=== PATIENT | male | born 1980 | race African-American/Black ===

== ENCOUNTER 2020-07-25 19:51 | Emergency (ER) | payer OTHER ==
[~2020-07-25] VITALS: Ht 177.8 cm; Wt 102.9 kg
[~2020-07-25 19:51] MED LIST: LEVE500T56 PO; LOSA-73 PO; PALI156D IM; PROP60TA PO
--- NOTE | 2020-07-25 20:22 | PHYS DOC ---
Past Medical History Past Medical History: Diabetes-Type II, High Cholesterol, Hypertension, S chizophrenia Additional Past Medical Histor: paranoid schizophrenia, insomnia Past Surgical History: No Surgical History Smoking Status: Current Every Day Smoker Alcohol Use: None Drug Use: None General Adult EDM: Chief Complaint: OTHER COMPLAINTS HPI: HPI: 40-year-old male past medical history of paranoid schizophrenia, type 2 diabetes, hypertension hyperlipidemia presents to the ED with biological mother after primary care physician's office sent him here with concern for glucose above 500 after labs are drawn today at PCPs office. Patient was seen by pcp this morning for increased urinary urgency and was diagnosed with a UTI, has not filled the antibiotic prescription that was called in today. Pt asking for applejuice and applesauce in ed. Patient was seen at [facility] a few months ago and is on depakote now. Patient was admitted June 03 with concern for seizure-like activity with rhabdomyolysis. Patient takes propanolol, Invega monthly, Keppra and losartan. Pt with no active complaint. Is asking for food and water. Review of Systems: Review of Systems: Constitutional: Denies fever or chills. [] Eyes: Denies change in visual acuity. [] HENT: Denies nasal congestion or sore throat. [] Respiratory: Denies cough or shortness of breath. [] Cardiovascular: Denies chest pain or edema. [] GI: Denies abdominal pain, nausea, vomiting, bloody stools or diarrhea. [] : Denies dysuria. [] Musculoskeletal: Denies back pain or joint pain. [] Integument: Denies rash. [] Neurologic: Denies headache, focal weakness or sensory changes. [] Endocrine: Denies polyuria or polydipsia. [] Lymphatic: Denies swollen glands. [] Psychiatric: Denies depression or anxiety. [] Heart Score: C/O Chest Pain: No Risk Factors: Risk Factors: DM, Current or recent (<one month) smoker, HTN, HLP, family history of CAD, obesity. Risk Scores: Score 0 - 3: 2.5% MACE over next 6 weeks - Discharge Home Score 4 - 6: 20.3% MACE over next 6 weeks - Admit for Clinical Observation Score 7 - 10: 72.7% MACE over next 6 weeks - Early Invasive Strategies Allergies: Allergies: Allergies Coded Allergies Type Severity Reaction Last Updated Verified No Known Drug Allergies 06/03/20 No Physical Exam: PE: Constitutional: Well developed, well nourished, no acute distress, non-toxic appearance. HENT: Normocephalic, atraumatic, dry mucous membranes Eyes: EOMI, conjunctiva normal, no discharge. Neck: Normal range of motion, supple, Cardiovascular: S1/2 present, regular rhythm Lungs & Thorax: Speaking in full sentences, bilateral equal chest rise, no tachypnea or increased work of breathing Abdomen: soft, no tenderness, Skin: Warm, dry, no erythema, no rash. [] Back: No tenderness, no CVA tenderness. [] Extremities: No tenderness, no cyanosis, no lower extremity edema Neurologic: Alert and oriented X 3, normal motor function, normal sensory function, no focal deficits noted. [] Psychologic: Affect normal, judgement normal, mood normal. [] EKG: EKG: [] Radiology/Procedures: Radiology/Procedures: IMAGING REPORT Signed PATIENT: ARIK CHIN ACCOUNT: [id number] : 1980 LOCATION: ER AGE: 40 SEX: M EXAM STATUS: REG ER ORD. PHYSICIAN: ERIC CHANDLER DO REASON: high glucose PROCEDURE: CHEST AP ONLY Exam: Chest one view INDICATION: High clinical TECHNIQUE: Frontal view of the chest Comparisons: 07/26/2013 FINDINGS: The cardiomediastinal silhouette and pulmonary vessels are within normal limits. The lung and pleural spaces are clear. IMPRESSION: No acute cardiopulmonary process. Electronically signed by: Christiano Bentley MD (07/25/2020 8:53 PM) [facility] DICTATED and SIGNED BY: CHRISTIANO BENTLEY MD DATE: 07/25/[id number] 0 Course & Med Decision Making: Course & Med Decision Making Pertinent Labs and Imaging studies reviewed. (See chart for details) Concern for uncontrolled type 2 diabetes and hypocalcemia -corrected calcium was 7.6, vitamin D and calcium given in ED. repeat labs after IV fluids with no signs of hyperosmolar hyperglycemic state. Will discharge home with strict ED return precautions were given for polyuria, polydipsia, fever, nausea, vomiting, flulike symptoms or dehydration. Encouraged urgent outpatient follow-up with PMD and endocrinology in 24 to 40 hours. Life-threatening processes were considered but are low suspicion at this time, given history, physical exam and ED workup. Pt was educated on all prescription medications and adverse effects. All patient's questions were answered and pt was stable at time of discharge. Life/limb-threatening differential includes but is not limited to, acute coronary syndrome/myocardial infarction, Boerhaave's, DKA, gastrointestinal bleeding, intracranial hemorrhage, ischemic bowel, meningitis, sepsis, surgical abdomen (AAA), toxidrome (drug over/overdose/carbon monoxide, etc), ovarian/testicular torsion, trauma, or infection/sepsis. I spoken with the patient and her caregivers. I explained the patient's condition, diagnoses and treatment plan based on the information available to me at this time. I have answered the patient and her caregiver's questions and addressed any concerns. The patient and her caregivers have a good understanding of patient's diagnosis, condition and treatment plan as can be expected at this point. Vital signs have been stable. Patient's condition is stable and appropriate for discharge from the emergency department. Patient will pursue further outpatient evaluation with primary care physician or other designated or consulting physician as outlined in the discharge instructions. The patient and/or caregivers are agreeable to this plan of care and follow-up instructions have been explained in detail. The patient and/or caregivers have received these instructions in written form and have expressed an understanding of the discharge instructions. The patient and/or caregivers are aware that any significant change of condition or worsening of symptoms should prompt immediate return to this or the closest emergency department or call to 911. Patria Disclaimer: Patria Disclaimer: This electronic medical record was generated, in whole or in part, using a voice recognition dictation system. Departure Departure Impression: Primary Impression: Uncontrolled diabetes mellitus Additional Impression: Hypocalcemia Disposition: 01 DC HOME SELF CARE/HOMELESS Condition: STABLE Referrals: Sasha HERNANDEZ (PCP) For evaluation in 24 to 48 hours, continue [id number] multivitamin repeat calcium level Patient Instructions: Hypocalcemia, Adult, Type 1 or Type 2 Diabetes Mellitus During Additional Instructions: [facility] [address] [facility] [address] [place] [address] OR [facility] [address] [address] OR [facility] [address] [place] [address] EMERGENCY DEPARTMENT GENERAL DISCHARGE INSTRUCTIONS Thank you for coming to [facility] Emergency Department (ED) today and trusting us with you care. We trust that you had a positive experience in our Emergency Department. If you wish to speak to the department management, you may call the Director at [phone]. YOUR FOLLOW UP INSTRUCTIONS ARE FOLLOWS: 1. Do you have a private Doctor? If you do not have a private doctor, please ask for a resource list of physicians or clinics that may be able to assist you with follow up care. 2. The Emergency Physicain has interpreted your x-rays. The X-Ray specialist will also review them. If there is a change in the findings, you will be notified in 48 hours when at all possible. 3. A lab test or culture has been done, your results will be reviewed and you will be notified if you need a change in treatment. ADDITIONAL INSTRUCTIONS AND INFORMATION: 1. Your care today has been supervised by a physician who is specially trained in emergency care. Many problems require more than one evaluation for a complete diagnosis and treatment. We recommend that you schedule your follow up appointment as recommended to ensure complete treatment of you illness or injury. If you are unable to obtain follow up care and continue to have a problem, or if your condition worsens, we recommend that you return to the ED. 2. We are not able to safely determine your condition over the phone nor are we able to give sound medical advice over the phone. For these safety reasons, if you call for medical advice we will ask you to come to the ED for further evaluation. 3. If you have any questions regarding these discharge instructions please call the ED at [phone]. SAFETY INFORMATION: In the interest of safety, wellness, and injury prevention; we encourage you to wear your sealbelt, if you smoke; quite smoking, and we encourage family to use a protective helmet for bicycling and other sporting events that present an increased risk for head injury. IF YOUR SYMPTOMS WORSEN OR NEW SYMPTOMS DEVELOP, OR YOU HAVE CONCERNS ABOUT YOUR CONDITION; OR IF YOUR CONDITION WORSENS WHILE YOU ARE WAITING FOR YOUR FOLLOW UP APPOINTMENT; EITHER CONTACT YOUR PRIMARY CARE DOCTOR, THE PHYSICIAN WHOSE NAME AND NUMBER YOU WERE GIVEN, OR RETURN TO THE ED IMMEDIATELY. ERIC WILLS DO Jul 25, 2020 20:22
[2020-07-25 20:29] LABS: BILIRUBIN,URINE NEGATIVE (NEG); CLARITY,URINE CLEAR; COLOR,URINE YELLOW; NITRITE,URINE NEGATIVE (NEG); PROTEIN,URINE NEGATIVE (NEG-TRACE)
[2020-07-25] MEDS ORDERED: IV NORMAL SALINE 1000ML BAG 1,000 ML IV ONE ×3 (20:30→23:00)
[2020-07-25 20:33] LABS: BASO # 0.1 x10^3/uL (0.0-0.2); BASO % 1 % (0-3); EOS # 0.3 x10^3/uL (0.0-0.7); EOS % 3 % (0-3); HEMATOCRIT 37.3 % (39.0-53.0); LYMPH # 3.8 x10^3/uL (1.0-4.8); LYMPH % 42 % (24-48); MEAN CORPUSCULAR VOLUME 81 fL (79-100); MONO # 0.5 x10^3/uL (0.0-1.1); MONO % 6 % (0-9); NEUT # 4.4 x10^3/uL (1.8-7.7); NEUT % 48 % (31-73); PLATELET COUNT 238 x10^3/uL (140-400); RED BLOOD COUNT 4.63 x10^6/uL (4.30-5.70); WHITE BLOOD COUNT 9.2 x10^3/uL (4.0-11.0)
[2020-07-25 20:38] LABS: BACTERIA,URINE 0 /HPF (0-FEW); RBC,URINE 0 /HPF (0-2); WBC,URINE 0 /HPF (0-4)
[2020-07-25 20:46] LABS: ALBUMIN 3.2 g/dL (3.4-5.0); ALBUMIN/GLOBULIN RATIO 0.8 (1.0-1.7); ANION GAP 16 (6-14); BLOOD UREA NITROGEN 15 mg/dL (8-26); BUN/CREATININE RATIO 13 (6-20); CALCIUM 6.9 mg/dL (8.5-10.1); CARBON DIOXIDE 17 mmol/L (21-32); CHLORIDE 92 mmol/L (98-107); MAGNESIUM 2.1 mg/dL (1.8-2.4); PHOSPHORUS 3.1 mg/dL (2.6-4.7); POTASSIUM 4.4 mmol/L (3.5-5.1); SODIUM 125 mmol/L (136-145); TOTAL BILIRUBIN 0.9 mg/dL (0.2-1.0)
--- NOTE | 2020-07-25 20:56 | RAD ---
Exam: Chest one view INDICATION: High clinical TECHNIQUE: Frontal view of the chest Comparisons: 07/26/2013 FINDINGS: The cardiomediastinal silhouette and pulmonary vessels are within normal limits. The lung and pleural spaces are clear. IMPRESSION: No acute cardiopulmonary process. Electronically signed by: Christiano Alicea MD (07/25/2020 8:53 PM) [facility]
[2020-07-25 21:05] LABS: GLUCOSE 626 mg/dL (70-99)
[2020-07-25 21:14] LABS: HEMOGLOBIN 12.7 g/dL (13.0-17.5)
[2020-07-25 21:15] LABS: MEAN CORPUSCULAR HGB CONC 34 g/dL (31-37)
[2020-07-25 21:16] LABS: ALK PHOS 80 U/L (46-116); MEAN CORPUSCULAR HEMOGLOBIN 27 pg (25-35)
[2020-07-25 21:31] LABS: CREATININE 1.1 mg/dL (0.7-1.3); TOTAL PROTEIN 7.2 g/dL (6.4-8.2)
[2020-07-25 21:32] LABS: ALT (SGPT) 47 U/L (16-63)
[2020-07-25 21:33] LABS: ISTAT BE VENOUS 5 mmol/L (0-3); ISTAT HCO3 VEN 29 mmol/L (24-28); ISTAT PCO2 VEN 41 mmHg (41-51); ISTAT PH VEN 7.45 (7.32-7.42); ISTAT PO2 VEN 149 mmHg (20-40); ISTAT SAT O2 VEN 99 %; ISTAT TCO2 VEN 30 mmol/L (21-32)
[2020-07-25 21:34] LABS: VAL ACID 14 mcg/mL (50-100)
[2020-07-25] MEDS ORDERED: ASPI-630 PO (22:11)
[2020-07-25] MEDS ORDERED: DIVA500T4 PO (22:12)
[2020-07-25] MEDS ORDERED: PROP20TA PO (22:13)
[2020-07-25] MEDS ORDERED: AMLO-187 PO (22:13)
[2020-07-25] MEDS ORDERED: METF500T16 PO (22:14)
[2020-07-25] MEDS ORDERED: FENO145T3 PO (22:18)
[2020-07-25] MEDS ORDERED: CALCIUM GLUCONATE 1,000 MG/10 ML VIAL. IVP ONE (22:30)
[2020-07-25] MEDS ORDERED: CALCITRIOL 0.25 MCG CAPSULE. PO ONE (22:30)
[2020-07-26 00:18] LABS: CALCIUM 7.8 mg/dL (8.5-10.1); CREATININE 0.9 mg/dL (0.7-1.3); GFR 114.3; POTASSIUM 4.6 mmol/L (3.5-5.1)
[2020-07-26 00:32] VITALS: BP 134/79
== END 2020-07-26 00:43 | disposition home or self-care (01) ==
LOC: ER 19:51
DX: E11.9 Type 2 diabetes mellitus without complications (principal); E83.51 Hypocalcemia; R35.0 Frequency of micturition; M62.82 Rhabdomyolysis; E78.00 Pure hypercholesterolemia, unspecified; I10 Essential (primary) hypertension; F17.200 Nicotine dependence, unspecified, uncomplicated; F20.9 Schizophrenia, unspecified
CPT/HCPCS: 36415; 71045; 80048; 80053; 80164; 81001; 82010; 82803; 82962; 83735; 83930; 84100; 85025; 96361; 96374; 99285; J0610; J7030